=== PATIENT | female | born 1955 | race Caucasian/White ===

== ENCOUNTER 2019-06-12 00:21 | Inpatient (IN) ==
[2019-06-12] MEDS ORDERED: SODIUM CHLORIDE 0.9% 1,000 ML IV STA (00:50)
[2019-06-12 01:03] LABS: PT Patient Result 10.7 SECS
[2019-06-12 01:22] LABS: Albumin 3.1 G/DL (3.4-5.0); Bilirubin,Total 0.4 MG/DL (0.2-1.0); Calcium 8.7 MG/DL (8.5-10.1); Osmolality,Calculated 289.6 MOS/KG (273-304); Total Protein 7.2 G/DL (6.4-8.3)
[2019-06-12 01:47] LABS: Apearance,Urine CLOUDY (Clear); Bacteria,Urine Moderate /HPF (Few); Bilirubin,Urine Negative (Negative); Blood, Urine Small mg/dL (Negative); Glucose,Urine (UA) Negative (Negative); Ketones,Urine Negative (Negative); Nitrite,Urine Positive (Negative); Protein,Urine 100 MG/DL; RBC,Urine 55 /HPF (0-4); Urine Color Yellow (Yellow); Urine Specific Gravity 1.009 (1.001-1.035); Urine Urobilinogen < 2.0 EU/DL (0.2-1.0); WBC,Urine 2431 /HPF (0-6)
[2019-06-12] MEDS ORDERED: PIPERACILLIN/TAZOBACTAM 3,375 MG in SODIUM CHLORIDE 0.9% 100 ML IV STA ×2 (01:54→01:57)
[2019-06-12 02:44] LABS: Basophils % 0.2 % (0.0-0.8); Eosinophils # 0.3 10*3/uL (0.0-0.87); Eosinophils % 2.6 % (0.00-10.9); Hematocrit 38.2 VOL% (35.7-47.0); Immature Granulocytes % 0.7 %; Immature Granulocytes Absolute 0.09 #; Lymphocytes # 1.4 10*3/uL (1.4-4.0); Lymphocytes % 11.8 % (21.3-54.2); Mean Corpuscular HGB Conc 31.4 GM/DL (32-36); Mean Corpuscular Volume 93.9 FL (87-102); Mean Platelet Volume 9.4 FL (9.6-12.0); Monocytes % 7.9 % (1.7-12.7); Neutrophils % 76.8 % (38.7-73.9); Platelet Count 185 T/CUMM (130-400); Red Blood Count 4.07 MC/CUMM (3.8-5.5); Red Cell Distribution Width 13.4 % (9.3-17.3); White Blood Count 12.1 T/CUMM (4-12)
[2019-06-12] MEDS ORDERED: ACETAMINOPHEN 325 MG TABLET PO PRN (05:03)
[2019-06-12] MEDS ORDERED: DOCUSATE SODIUM 100 MG CAPSULE PO PRN (05:03)
[2019-06-12] MEDS ORDERED: ALBUTEROL/IPRATROPIUM 3 ML NEB RESP TX PRN (05:03)
[2019-06-12] MEDS ORDERED: ONDANSETRON 4 MG/2 ML VIAL IV PRN (05:03)
[2019-06-12] MEDS: AZTREONAM 2,000 MG in SYRINGE 1 EACH IV SCH ×4 (05:37→22:23)
[2019-06-12] MEDS: LEVOFLOXACIN INJ 750 MG in PREMIX 1 EACH IV SCH (05:40)
[2019-06-12] MEDS: ENOXAPARIN 40 MG/0.4 ML SYRINGE SUBCUT SCH (08:24)
[2019-06-12] MEDS: LACTATED RINGERS 1,000 ML IV SCH ×2 (12:51→21:02)
[2019-06-13] MEDS: LACTATED RINGERS 1,000 ML IV SCH ×3 (05:03→22:18)
[2019-06-13] MEDS: AZTREONAM 2,000 MG in SYRINGE 1 EACH IV SCH ×4 (05:03→23:29)
[2019-06-13] MEDS: LEVOFLOXACIN INJ 750 MG in PREMIX 1 EACH IV SCH (05:41)
[2019-06-13 05:42] LABS: Basophils % 0.3 % (0.0-0.8); Eosinophils # 0.3 10*3/uL (0.0-0.87); Eosinophils % 4.3 % (0.00-10.9); Hemoglobin 9.7 GM/DL (12.0-16.0); Immature Granulocytes % 0.5 %; Immature Granulocytes Absolute 0.04 #; Lymphocytes % 12.3 % (21.3-54.2); Mean Corpuscular HGB Conc 32.3 GM/DL (32-36); Mean Corpuscular Volume 92.6 FL (87-102); Mean Platelet Volume 9.8 FL (9.6-12.0); Monocytes % 8.5 % (1.7-12.7); Neutrophils % 74.1 % (38.7-73.9); Platelet Count 193 T/CUMM (130-400); Red Blood Count 3.24 MC/CUMM (3.8-5.5); Red Cell Distribution Width 13.8 % (9.3-17.3)
[2019-06-13 06:12] LABS: Osmolality,Calculated 287.7 MOS/KG (273-304)
[2019-06-13] MEDS: ENOXAPARIN 40 MG/0.4 ML SYRINGE SUBCUT SCH (08:57)
[2019-06-13] MEDS: DULoxetine 30 MG CAPSULE PO SCH (10:47)
[2019-06-13] MEDS: TAMOXIFEN 10 MG TABLET PO SCH (10:48)
[2019-06-13] MEDS: POLYETHYLENE GLYCOL POWDER 17 GM PACK PO SCH (11:15)
[2019-06-14] MEDS: AZTREONAM 2,000 MG in SYRINGE 1 EACH IV SCH (04:44)
[2019-06-14] MEDS: LEVOFLOXACIN INJ 750 MG in PREMIX 1 EACH IV SCH (04:49)
[2019-06-14 05:44] LABS: Basophils % 0.1 % (0.0-0.8); Calcium 7.9 MG/DL (8.5-10.1); Eosinophils # 0.4 10*3/uL (0.0-0.87); Eosinophils % 4.5 % (0.00-10.9); Hematocrit 28.8 VOL% (35.7-47.0); Hemoglobin 9.2 GM/DL (12.0-16.0); Immature Granulocytes % 0.5 %; Immature Granulocytes Absolute 0.04 #; Lymphocytes # 1.2 10*3/uL (1.4-4.0); Lymphocytes % 14.1 % (21.3-54.2); Mean Corpuscular HGB Conc 31.9 GM/DL (32-36); Mean Corpuscular Volume 92.9 FL (87-102); Mean Platelet Volume 10.1 FL (9.6-12.0); Monocytes % 6.9 % (1.7-12.7); Neutrophils % 73.9 % (38.7-73.9); Osmolality,Calculated 291.4 MOS/KG (273-304); Platelet Count 211 T/CUMM (130-400); Red Cell Distribution Width 13.9 % (9.3-17.3); White Blood Count 8.7 T/CUMM (4-12)
[2019-06-14 06:20] LABS: Troponin I 0.459 NG/ML (0.00-0.045)
[2019-06-14] MEDS ORDERED: POTASSIUM CHLORIDE 20 MEQ TABLET PO ONE (08:00)
[2019-06-14] MEDS ORDERED: FUROSEMIDE 20 MG/2 ML VIAL IV ONE ×2 (08:00→15:00)
[2019-06-14] MEDS: DULoxetine 30 MG CAPSULE PO SCH (08:28)
[2019-06-14] MEDS: ENOXAPARIN 40 MG/0.4 ML SYRINGE SUBCUT SCH (08:28)
[2019-06-14] MEDS: POLYETHYLENE GLYCOL POWDER 17 GM PACK PO SCH (08:29)
[2019-06-14] MEDS: TAMOXIFEN 10 MG TABLET PO SCH (08:29)
[2019-06-14] MEDS: MEROPENEM 500 MG in SODIUM CHLORIDE 0.9% 100 ML IV SCH ×3 (11:11→23:28)
[2019-06-15] MEDS: MEROPENEM 500 MG in SODIUM CHLORIDE 0.9% 100 ML IV SCH ×4 (05:17→20:48)
[2019-06-15] MEDS: ENOXAPARIN 40 MG/0.4 ML SYRINGE SUBCUT SCH (08:24)
[2019-06-15] MEDS: DULoxetine 30 MG CAPSULE PO SCH (08:25)
[2019-06-15] MEDS: POLYETHYLENE GLYCOL POWDER 17 GM PACK PO SCH (08:25)
[2019-06-15] MEDS: TAMOXIFEN 10 MG TABLET PO SCH (08:28)
[2019-06-15 08:37] LABS: Osmolality,Calculated 289.6 MOS/KG (273-304)
[2019-06-15] MEDS ORDERED: FUROSEMIDE 20 MG/2 ML VIAL IV ONE (10:00)
[2019-06-15] MEDS ORDERED: POTASSIUM CHLORIDE 20 MEQ TABLET PO ONE (10:00)
[2019-06-16] MEDS: MEROPENEM 500 MG in SODIUM CHLORIDE 0.9% 100 ML IV SCH ×3 (03:21→15:25)
[2019-06-16 06:22] LABS: Calcium 8.1 MG/DL (8.5-10.1); Osmolality,Calculated 291.6 MOS/KG (273-304)
[2019-06-16] MEDS: ENOXAPARIN 40 MG/0.4 ML SYRINGE SUBCUT SCH (09:21)
[2019-06-16] MEDS: POLYETHYLENE GLYCOL POWDER 17 GM PACK PO SCH (09:21)
[2019-06-16] MEDS: DULoxetine 30 MG CAPSULE PO SCH (09:21)
[2019-06-16] MEDS: TAMOXIFEN 10 MG TABLET PO SCH (09:22)
[2019-06-16 11:53] VITALS: BP 116/63
== END 2019-06-16 14:55 | DRG 463 ==
LOC: N.ED 00:21 → SUATTDRO 03:59 → N.EDINP 03:59 → N.2E 05:04
PROVIDERS: ADMIT Family Medicine; ATTEND Internal Medicine Cardiovascular Disease

== ENCOUNTER 2019-09-02 13:02 | Inpatient (IN) ==
[2019-09-02] MEDS ORDERED: methylPREDNISolone SOD SUC 125 MG/2 ML VIAL IV STA (13:06)
[2019-09-02] MEDS ORDERED: CLINDAMYCIN INJ 900 MG in PREMIX 1 EACH IV STA (13:07)
[2019-09-02] MEDS ORDERED: LEVOFLOXACIN INJ 500 MG in PREMIX 1 EACH IV STA (13:07)
[2019-09-02] MEDS ORDERED: NOREPINEPHRINE 4 MG/4 ML VIAL IV ONE (13:28)
[2019-09-02 13:43] LABS: Basophils # 0.1 10*3/uL (0.0-0.2); Basophils % 0.4 % (0.0-0.8); Eosinophils # 0.1 10*3/uL (0.0-0.87); Eosinophils % 0.8 % (0.00-10.9); Hematocrit 37.4 VOL% (35.7-47.0); Hemoglobin 11.8 GM/DL (12.0-16.0); Immature Granulocytes % 2.9 %; Immature Granulocytes Absolute 0.38 #; Lymphocytes # 2.4 10*3/uL (1.4-4.0); Lymphocytes % 18.4 % (21.3-54.2); Mean Corpuscular HGB Conc 31.6 GM/DL (32-36); Mean Corpuscular Volume 94.7 FL (87-102); Mean Platelet Volume 9.9 FL (9.6-12.0); Monocytes % 4.2 % (1.7-12.7); Neutrophils % 73.3 % (38.7-73.9); Platelet Count 216 T/CUMM (130-400); Red Blood Count 3.95 MC/CUMM (3.8-5.5); Red Cell Distribution Width 13.1 % (9.3-17.3)
[2019-09-02] MEDS ORDERED: NOREPINEPHRINE 8 MG in SODIUM CHLORIDE 0.9% 242 ML IV PRN (13:46)
[2019-09-02 13:56] LABS: PT Patient Result 10.9 SECS (9.6-12.2)
[2019-09-02 14:02] LABS: ABG Base Excess -4.9 MMOL/L (-2.5-2.5); ABG HCO3 20.5 MMOL/L (20-26); ABG PCO2 34.8 MM HG (35-48); ABG PH 7.363 (7.35-7.45); ABG TCO2 17.3 MMOL/L (23-27)
[2019-09-02 14:14] LABS: Alanine Aminotransferase 459 U/L (13-56); Alkaline Phosphatase 67 U/L (45-117); Aspartate Amino Transferase 401 U/L (0-37); Bilirubin,Total < 0.39 MG/DL (0.2-1.0); Blood Urea Nitrogen 14 MG/DL (7-18); Estimated Glom Filtration Rate 59 ML/MIN; Glucose 210 MG/DL (74-106); Total Protein 5.7 G/DL (6.4-8.3)
[2019-09-02] MEDS ORDERED: LEVOFLOXACIN INJ 750 MG in PREMIX 1 EACH IV SCH (14:30)
[2019-09-02 14:49] LABS: Apearance,Urine Slightly Hazy (Clear); Bacteria,Urine Occasional /HPF (Few); Bilirubin,Urine Negative (Negative); Blood, Urine Small mg/dL (Negative); Glucose,Urine (UA) 150 mg/dL (Negative); Ketones,Urine 5 mg/dL (Negative); Mucus,Urine Occasional /LPF (Occasional); Nitrite,Urine Negative (Negative); Protein,Urine 100 MG/DL; RBC,Urine 17 /HPF (0-4); Squamous Epithelial Cell,Urine Occasional /HPF (0-10); Urine Color Yellow (Yellow); Urine Specific Gravity 1.014 (1.001-1.035); Urine Urobilinogen < 2.0 EU/DL (0.2-1.0); WBC,Urine 20 /HPF (0-6)
[2019-09-02 15:08] LABS: Barbiturates Screen,Urine Negative (Negative); Benzodiazepines Screen,Urine Negative (Negative); Cannabinoid Screen,Urine Negative (Negative); Opiate Screen,Urine Negative (Negative); Phencyclidine Screen,Urine Negative (Negative)
[2019-09-02] MEDS ORDERED: levETIRAcetam 500 MG/5 ML VIAL IV ONE (15:30)
[2019-09-02] MEDS ORDERED: PROPOFOL 1,000 MG/100 ML BOTTLE IV ONE (16:35)
[2019-09-02] MEDS ORDERED: HEPARIN/NACL 0.9% 2 UNITS/ML 500 ML IV ONE (16:40)
[2019-09-02] MEDS ORDERED: ACETAMINOPHEN 325 MG TABLET PO PRN (17:02)
[2019-09-02] MEDS ORDERED: ONDANSETRON 4 MG/2 ML VIAL IV PRN (17:02)
[2019-09-02] MEDS ORDERED: ALBUTEROL 2.5 MG/3 ML NEB RESP TX PRN (17:07)
[2019-09-02] MEDS ORDERED: fentaNYL 100 MCG/2 ML VIAL IV PRN (17:23)
[2019-09-02] MEDS ORDERED: MEPERIDINE 25 MG/1 ML VIAL IV PRN (17:23)
[2019-09-02] MEDS ORDERED: CISATRACURIUM 10 MG/5 ML VIAL IV ONE (17:31)
[2019-09-02] MEDS: PROPOFOL 1,000 MG/100 ML BOTTLE IV SCH ×2 (17:56→21:10)
[2019-09-02] MEDS: NOREPINEPHRINE 8 MG in SODIUM CHLORIDE 0.9% 242 ML IV PRN (17:58)
[2019-09-02] MEDS ORDERED: SODIUM CHLORIDE 0.9% 1,000 ML IV ONE (18:00)
[2019-09-02 18:14] LABS: ABG Base Excess -5.5 MMOL/L (-2.5-2.5); ABG HCO3 19.9 MMOL/L (20-26); ABG PCO2 30.3 MM HG (35-48); ABG PH 7.392 (7.35-7.45); ABG TCO2 16.5 MMOL/L (23-27); Pt O2 Delivery Device Ventilator
[2019-09-02 18:16] LABS: Basophils % 0.1 % (0.0-0.8); Eosinophils % 0.1 % (0.00-10.9); Hematocrit 34.1 VOL% (35.7-47.0); Hemoglobin 11.1 GM/DL (12.0-16.0); Immature Granulocytes % 0.4 %; Immature Granulocytes Absolute 0.06 #; Lymphocytes # 0.5 10*3/uL (1.4-4.0); Lymphocytes % 3.3 % (21.3-54.2); Mean Corpuscular HGB Conc 32.6 GM/DL (32-36); Mean Corpuscular Volume 91.2 FL (87-102); Mean Platelet Volume 9.4 FL (9.6-12.0); Monocytes % 6.4 % (1.7-12.7); Neutrophils % 89.7 % (38.7-73.9); Platelet Count 193 T/CUMM (130-400); Red Blood Count 3.74 MC/CUMM (3.8-5.5); Red Cell Distribution Width 13.1 % (9.3-17.3); White Blood Count 14.1 T/CUMM (4-12)
[2019-09-02] MEDS: CISATRACURIUM 200 MG in SODIUM CHLORIDE 0.9% 180 ML IV SCH (18:20)
[2019-09-02] MEDS: fentaNYL INJ 1,250 MCG in SODIUM CHLORIDE 0.9% 225 ML IV PRN (18:23)
[2019-09-02 18:30] LABS: INR 1.1; PT Patient Result 12.1 SECS (9.6-12.2); Partial Thromboplastin Time 23.3 SECS (20.8-36.0)
[2019-09-02 18:38] LABS: Blood Urea Nitrogen 17 MG/DL (7-18); CKMB % 3.7 %; Calcium 7.4 MG/DL (8.5-10.1); Estimated Glom Filtration Rate 62 ML/MIN; Glucose 290 MG/DL (74-106); Osmolality,Calculated 304.4 MOS/KG (273-304); Troponin I 0.148 NG/ML (0.00-0.045)
[2019-09-02] MEDS: VANCOMYCIN INJ 1,250 MG in SODIUM CHLORIDE 0.9% 250 ML IV SCH (19:00)
[2019-09-02] MEDS: SODIUM CHLORIDE 0.9% 1,000 ML IV SCH ×2 (19:04→23:27)
[2019-09-02 19:32] LABS: Band Neutrophils 4 % (0-10); Lymphocytes 2 % (20-55); Segmented Neutrophils 87 % (50-85); Total Cells Counted 100
[2019-09-02 19:34] LABS: Macrocytosis Slight; Platelet Estimate Normal
[2019-09-02] MEDS: PANTOPRAZOLE 40 MG VIAL IV SCH (20:26)
[2019-09-02] MEDS: MINERAL OIL/PETROLATUM OPH OINT 3.5 GM TUBE BOTH EYES SCH ×2 (20:26→22:02)
[2019-09-02] MEDS ORDERED: MAGNESIUM SULF RIDER 4 GM in PREMIX 1 EACH IV PRN (20:48)
[2019-09-02] MEDS ORDERED: MAGNESIUM SULF RIDER 2 GM in PREMIX 1 EACH IV PRN (20:48)
[2019-09-02] MEDS ORDERED: POTASSIUM CHLORIDE RIDER 200 ML IV ONE (20:55)
[2019-09-02] MEDS: INSULIN REGULAR 100 UNIT/ML IV SCH (20:55)
[2019-09-02] MEDS ORDERED: FAMOTIDINE 20 MG/2 ML VIAL IV SCH (21:00)
[2019-09-02] MEDS ORDERED: ENOXAPARIN 40 MG/0.4 ML SYRINGE SUBCUT SCH (21:00)
[2019-09-02] MEDS ORDERED: DOCUSATE SODIUM 100 MG CAPSULE PO SCH (21:00)
[2019-09-02] MEDS: POTASSIUM CHLORIDE RIDER 10 MEQ in PREMIX 1 EACH IV PRN ×2 (21:00→21:55)
[2019-09-02] MEDS: CLINDAMYCIN INJ 600 MG in PREMIX 1 EACH IV SCH (21:52)
[2019-09-03] MEDS: INSULIN REGULAR 100 UNIT/ML IV SCH ×7 (00:08→22:05)
[2019-09-03 00:12] LABS: Basophils % 0.1 % (0.0-0.8); Eosinophils % 0.1 % (0.00-10.9); Hematocrit 30.6 VOL% (35.7-47.0); Hemoglobin 10.2 GM/DL (12.0-16.0); Immature Granulocytes % 0.4 %; Immature Granulocytes Absolute 0.04 #; Lymphocytes # 0.3 10*3/uL (1.4-4.0); Lymphocytes % 2.7 % (21.3-54.2); Mean Corpuscular HGB Conc 33.3 GM/DL (32-36); Mean Corpuscular Volume 90.3 FL (87-102); Mean Platelet Volume 9.7 FL (9.6-12.0); Monocytes % 6.3 % (1.7-12.7); Neutrophils % 90.4 % (38.7-73.9); Platelet Count 128 T/CUMM (130-400); Red Blood Count 3.39 MC/CUMM (3.8-5.5); Red Cell Distribution Width 12.9 % (9.3-17.3); White Blood Count 10.7 T/CUMM (4-12)
[2019-09-03 00:21] LABS: INR 1.1; PT Patient Result 12.2 SECS (9.6-12.2); Partial Thromboplastin Time 25.5 SECS (20.8-36.0)
[2019-09-03 00:30] LABS: Blood Urea Nitrogen 17 MG/DL (7-18); Estimated Glom Filtration Rate 62 ML/MIN; Glucose 144 MG/DL (74-106)
[2019-09-03 00:37] LABS: Troponin I 0.238 NG/ML (0.00-0.045)
[2019-09-03 00:43] LABS: Band Neutrophils 2 % (0-10); Lymphocytes 6 % (20-55); Microcytosis Slight; Segmented Neutrophils 88 % (50-85); Total Cells Counted 100
[2019-09-03 00:44] LABS: Platelet Estimate Normal
[2019-09-03] MEDS ORDERED: POTASSIUM CHLORIDE RIDER IV ONE (00:46)
[2019-09-03] MEDS: POTASSIUM CHLORIDE RIDER 10 MEQ in PREMIX 1 EACH IV PRN ×8 (00:51→13:55)
[2019-09-03] MEDS: SODIUM CHLORIDE 0.45% 1,000 ML IV SCH ×3 (01:15→16:47)
[2019-09-03] MEDS: PROPOFOL 1,000 MG/100 ML BOTTLE IV SCH ×5 (02:15→21:07)
[2019-09-03] MEDS: MINERAL OIL/PETROLATUM OPH OINT 3.5 GM TUBE BOTH EYES SCH ×6 (02:18→21:31)
[2019-09-03 04:16] LABS: ABG HCO3 14.9 MMOL/L (20-26); ABG Oxygen Saturation 98.9 % (95-100); ABG PH 7.487 (7.35-7.45); ABG TCO2 15.5 MMOL/L (23-27)
[2019-09-03 04:24] LABS: Basophils % 0.1 % (0.0-0.8); Hematocrit 28.5 VOL% (35.7-47.0); Hemoglobin 9.5 GM/DL (12.0-16.0); Immature Granulocytes % 0.6 %; Immature Granulocytes Absolute 0.06 #; Lymphocytes # 0.4 10*3/uL (1.4-4.0); Lymphocytes % 4.1 % (21.3-54.2); Mean Corpuscular HGB Conc 33.3 GM/DL (32-36); Mean Corpuscular Volume 89.9 FL (87-102); Mean Platelet Volume 10.4 FL (9.6-12.0); Monocytes % 4.5 % (1.7-12.7); Neutrophils % 90.7 % (38.7-73.9); Platelet Count 127 T/CUMM (130-400); Red Blood Count 3.17 MC/CUMM (3.8-5.5); Red Cell Distribution Width 12.6 % (9.3-17.3)
[2019-09-03 04:26] LABS: ABG PCO2 20.1 MM HG (35-48)
[2019-09-03 04:49] LABS: Albumin 2.4 G/DL (3.4-5.0); Bilirubin,Total 0.8 MG/DL (0.2-1.0); Calcium 6.8 MG/DL (8.5-10.1); Osmolality,Calculated 289.8 MOS/KG (273-304); Total Protein 4.8 G/DL (6.4-8.3)
[2019-09-03 04:51] LABS: Lymphocytes 2 % (20-55); Segmented Neutrophils 91 % (50-85); Total Cells Counted 100
[2019-09-03 04:52] LABS: Microcytosis Slight; Platelet Estimate Adequate
[2019-09-03 04:54] LABS: CKMB % 4.2 %
[2019-09-03 04:56] LABS: Troponin I 0.197 NG/ML (0.00-0.045)
[2019-09-03 05:30] LABS: Amorphous Crystals,Urine Occasional /HPF (Few); Apearance,Urine CLOUDY (Clear); Bacteria,Urine Occasional /HPF (Few); Bilirubin,Urine Negative (Negative); Blood, Urine Negative (Negative); Glucose,Urine (UA) Negative (Negative); Hyaline Casts,Urine 1 /LPF (0-3); Ketones,Urine 20 mg/dL (Negative); Mucus,Urine Occasional /LPF (Occasional); Nitrite,Urine Negative (Negative); Protein,Urine 30 MG/DL; RBC,Urine 12 /HPF (0-4); Squamous Epithelial Cell,Urine Occasional /HPF (0-10); Uric Acid Crystals,Urine Few /HPF (<1); Urine Color Yellow (Yellow); Urine Specific Gravity 1.024 (1.001-1.035); Urine Urobilinogen < 2.0 EU/DL (0.2-1.0); WBC,Urine 3 /HPF (0-6)
[2019-09-03] MEDS: CLINDAMYCIN INJ 600 MG in PREMIX 1 EACH IV SCH ×3 (05:55→21:19)
[2019-09-03 07:03] LABS: ABG Base Excess -4.7 MMOL/L (-2.5-2.5); ABG HCO3 20.6 MMOL/L (20-26); ABG Oxygen Saturation 99.9 % (95-100); ABG PCO2 26.1 MM HG (35-48); ABG PH 7.451 (7.35-7.45); ABG TCO2 16.5 MMOL/L (23-27)
[2019-09-03 07:42] LABS: INR 1.1; PT Patient Result 11.5 SECS (9.6-12.2); Partial Thromboplastin Time 26.5 SECS (20.8-36.0)
[2019-09-03] MEDS ORDERED: PANTOPRAZOLE 40 MG TABLET PO SCH (09:00)
[2019-09-03] MEDS: VANCOMYCIN INJ 1,250 MG in SODIUM CHLORIDE 0.9% 250 ML IV SCH (11:11)
[2019-09-03] MEDS ORDERED: NON-FORMULARY MEDICATION (Tamoxifen 20 MG) PO SCH (11:45)
[2019-09-03 11:57] LABS: Basophils % 0.1 % (0.0-0.8); Hematocrit 27.8 VOL% (35.7-47.0); Hemoglobin 9.4 GM/DL (12.0-16.0); Immature Granulocytes % 0.5 %; Immature Granulocytes Absolute 0.06 #; Lymphocytes # 0.7 10*3/uL (1.4-4.0); Lymphocytes % 5.7 % (21.3-54.2); Mean Corpuscular HGB Conc 33.8 GM/DL (32-36); Mean Corpuscular Volume 88.8 FL (87-102); Mean Platelet Volume 10.2 FL (9.6-12.0); Monocytes % 4.4 % (1.7-12.7); Neutrophils % 89.3 % (38.7-73.9); Platelet Count 120 T/CUMM (130-400); Red Blood Count 3.13 MC/CUMM (3.8-5.5); Red Cell Distribution Width 12.8 % (9.3-17.3)
[2019-09-03] MEDS ORDERED: DULoxetine 30 MG CAPSULE PO SCH (12:00)
[2019-09-03] MEDS ORDERED: POLYETHYLENE GLYCOL POWDER 17 GM PACK PO SCH (12:00)
[2019-09-03] MEDS ORDERED: DONEPEZIL 10 MG TABLET PO SCH (12:00)
[2019-09-03 12:06] LABS: PT Patient Result 11.2 SECS (9.6-12.2)
[2019-09-03 12:22] LABS: Osmolality,Calculated 287.8 MOS/KG (273-304)
[2019-09-03 12:29] LABS: CKMB % 4.7 %
[2019-09-03 12:30] LABS: Troponin I 0.138 NG/ML (0.00-0.045)
[2019-09-03] MEDS: fentaNYL INJ 1,250 MCG in SODIUM CHLORIDE 0.9% 225 ML IV PRN (12:35)
[2019-09-03] MEDS: LEVOFLOXACIN INJ 750 MG in PREMIX 1 EACH IV SCH (13:00)
[2019-09-03] MEDS: CISATRACURIUM 200 MG in SODIUM CHLORIDE 0.9% 180 ML IV SCH ×2 (13:38→16:48)
[2019-09-03] MEDS: PANTOPRAZOLE 40 MG VIAL IV SCH (17:40)
[2019-09-03 17:45] LABS: Basophils % 0.1 % (0.0-0.8); Hematocrit 27.5 VOL% (35.7-47.0); Hemoglobin 9.4 GM/DL (12.0-16.0); Immature Granulocytes % 0.4 %; Immature Granulocytes Absolute 0.05 #; Lymphocytes # 0.7 10*3/uL (1.4-4.0); Lymphocytes % 5.5 % (21.3-54.2); Mean Corpuscular HGB Conc 34.2 GM/DL (32-36); Mean Corpuscular Volume 88.1 FL (87-102); Mean Platelet Volume 10.3 FL (9.6-12.0); Monocytes % 4.1 % (1.7-12.7); Neutrophils % 89.9 % (38.7-73.9); Platelet Count 135 T/CUMM (130-400); Red Blood Count 3.12 MC/CUMM (3.8-5.5); Red Cell Distribution Width 12.9 % (9.3-17.3); White Blood Count 13.1 T/CUMM (4-12)
[2019-09-03 17:57] LABS: PT Patient Result 11.1 SECS (9.6-12.2); Partial Thromboplastin Time 28.8 SECS (20.8-36.0)
[2019-09-03 19:02] LABS: Calcium 6.8 MG/DL (8.5-10.1); Osmolality,Calculated 292.4 MOS/KG (273-304)
[2019-09-03] MEDS ORDERED: MEMANTINE 10 MG TABLET PO SCH (21:00)
[2019-09-03] MEDS ORDERED: CLOZAPINE 50 MG PO SCH (21:00)
[2019-09-04] MEDS: INSULIN REGULAR 100 UNIT/ML IV SCH ×4 (00:04→07:02)
[2019-09-04 00:09] LABS: Basophils % 0.2 % (0.0-0.8); Eosinophils % 0.1 % (0.00-10.9); Hematocrit 28.5 VOL% (35.7-47.0); Hemoglobin 9.7 GM/DL (12.0-16.0); Immature Granulocytes % 0.5 %; Immature Granulocytes Absolute 0.08 #; Lymphocytes # 0.9 10*3/uL (1.4-4.0); Lymphocytes % 4.9 % (21.3-54.2); Mean Corpuscular Volume 88.5 FL (87-102); Mean Platelet Volume 10.4 FL (9.6-12.0); Monocytes % 3.8 % (1.7-12.7); Neutrophils % 90.5 % (38.7-73.9); Platelet Count 148 T/CUMM (130-400); Red Blood Count 3.22 MC/CUMM (3.8-5.5); Red Cell Distribution Width 13.2 % (9.3-17.3); White Blood Count 17.3 T/CUMM (4-12)
[2019-09-04] MEDS: SODIUM CHLORIDE 0.45% 1,000 ML IV SCH ×3 (00:23→08:41)
[2019-09-04 00:33] LABS: Calcium 6.9 MG/DL (8.5-10.1); Osmolality,Calculated 291.4 MOS/KG (273-304)
[2019-09-04 01:02] LABS: Anisocytosis 1+; Lymphocytes 5 % (20-55); Platelet Estimate Adequate; Segmented Neutrophils 91 % (50-85); Total Cells Counted 100
[2019-09-04 01:03] LABS: PT Patient Result 11.2 SECS (9.6-12.2); Partial Thromboplastin Time 28.2 SECS (20.8-36.0)
[2019-09-04] MEDS: MINERAL OIL/PETROLATUM OPH OINT 3.5 GM TUBE BOTH EYES SCH ×6 (02:07→21:28)
[2019-09-04] MEDS: PROPOFOL 1,000 MG/100 ML BOTTLE IV SCH ×5 (02:15→21:08)
[2019-09-04] MEDS: CLINDAMYCIN INJ 600 MG in PREMIX 1 EACH IV SCH ×3 (05:08→21:27)
[2019-09-04] MEDS: VANCOMYCIN INJ 1,250 MG in SODIUM CHLORIDE 0.9% 250 ML IV SCH (05:43)
[2019-09-04] MEDS: fentaNYL INJ 1,250 MCG in SODIUM CHLORIDE 0.9% 225 ML IV PRN (06:15)
[2019-09-04 06:27] LABS: ABG Base Excess -7.2 MMOL/L (-2.5-2.5); ABG HCO3 18.6 MMOL/L (20-26); ABG Oxygen Saturation 99.6 % (95-100); ABG PCO2 26.1 MM HG (35-48); ABG PH 7.406 (7.35-7.45); ABG TCO2 15.1 MMOL/L (23-27)
[2019-09-04 06:29] LABS: Basophils % 0.1 % (0.0-0.8); Eosinophils % 0.1 % (0.00-10.9); Hematocrit 27.6 VOL% (35.7-47.0); Hemoglobin 9.1 GM/DL (12.0-16.0); Immature Granulocytes % 0.9 %; Immature Granulocytes Absolute 0.14 #; Lymphocytes # 0.7 10*3/uL (1.4-4.0); Lymphocytes % 4.5 % (21.3-54.2); Mean Corpuscular Volume 89.9 FL (87-102); Mean Platelet Volume 10.3 FL (9.6-12.0); Monocytes % 3.9 % (1.7-12.7); Neutrophils % 90.5 % (38.7-73.9); Platelet Count 149 T/CUMM (130-400); Red Blood Count 3.07 MC/CUMM (3.8-5.5); Red Cell Distribution Width 13.3 % (9.3-17.3); White Blood Count 15.4 T/CUMM (4-12)
[2019-09-04 06:36] LABS: PT Patient Result 11.3 SECS (9.6-12.2); Partial Thromboplastin Time 28.2 SECS (20.8-36.0)
[2019-09-04 07:01] LABS: Albumin 2.4 G/DL (3.4-5.0); Bilirubin,Total 0.5 MG/DL (0.2-1.0); Calcium 6.6 MG/DL (8.5-10.1); Total Protein 4.9 G/DL (6.4-8.3)
[2019-09-04] MEDS: INSULIN REGULAR 100 UNIT/ML SUBCUT SCH ×5 (07:41→23:47)
[2019-09-04 08:10] LABS: Band Neutrophils 15 % (0-10); Lymphocytes 2 % (20-55); Platelet Estimate Adequate; Segmented Neutrophils 81 % (50-85); Total Cells Counted 100
[2019-09-04 08:11] LABS: Anisocytosis Slight
[2019-09-04] MEDS ORDERED: ALBUMIN 25% 25 GM in PREMIX 1 EACH IV ONE (08:59)
[2019-09-04] MEDS ORDERED: LACTATED RINGERS 500 ML IV ONE (09:03)
[2019-09-04] MEDS: LACTATED RINGERS 1,000 ML IV SCH ×3 (09:33→22:56)
[2019-09-04] MEDS: NOREPINEPHRINE 8 MG in SODIUM CHLORIDE 0.9% 242 ML IV PRN (09:37)
[2019-09-04] MEDS: CALCIUM GLUCONATE 1,000 MG in SODIUM CHLORIDE 0.9% 100 ML IV SCH ×2 (09:55→21:07)
[2019-09-04] MEDS: CISATRACURIUM 200 MG in SODIUM CHLORIDE 0.9% 180 ML IV SCH ×2 (10:11→19:02)
[2019-09-04 11:45] LABS: ABG HCO3 20.2 MMOL/L (20-26); ABG PCO2 26.6 MM HG (35-48); ABG PH 7.443 (7.35-7.45); ABG TCO2 16.9 MMOL/L (23-27)
[2019-09-04 12:02] LABS: Calcium 6.9 MG/DL (8.5-10.1); Osmolality,Calculated 283.1 MOS/KG (273-304)
[2019-09-04] MEDS: LEVOFLOXACIN INJ 750 MG in PREMIX 1 EACH IV SCH (12:04)
[2019-09-04] MEDS ORDERED: DEXTROSE 10% 250 ML BAG IV PRN (16:40)
[2019-09-04] MEDS ORDERED: GLUCAGON 1 MG VIAL IM PRN (16:40)
[2019-09-04] MEDS: PANTOPRAZOLE 40 MG VIAL IV SCH (19:06)
[2019-09-05] MEDS: VANCOMYCIN INJ 1,250 MG in SODIUM CHLORIDE 0.9% 250 ML IV SCH (00:40)
[2019-09-05] MEDS: MINERAL OIL/PETROLATUM OPH OINT 3.5 GM TUBE BOTH EYES SCH ×2 (02:52→05:50)
[2019-09-05 04:29] LABS: Basophils % 0.1 % (0.0-0.8); Eosinophils % 0.4 % (0.00-10.9); Hematocrit 22.2 VOL% (35.7-47.0); Hemoglobin 7.3 GM/DL (12.0-16.0); Immature Granulocytes % 0.6 %; Immature Granulocytes Absolute 0.05 #; Lymphocytes # 0.9 10*3/uL (1.4-4.0); Lymphocytes % 11.4 % (21.3-54.2); Mean Corpuscular HGB Conc 32.9 GM/DL (32-36); Mean Corpuscular Volume 90.2 FL (87-102); Mean Platelet Volume 11.2 FL (9.6-12.0); Monocytes % 5.3 % (1.7-12.7); Neutrophils % 82.2 % (38.7-73.9); Platelet Count 99 T/CUMM (130-400); Red Blood Count 2.46 MC/CUMM (3.8-5.5); White Blood Count 7.8 T/CUMM (4-12)
[2019-09-05 04:30] LABS: ABG Base Excess -2.8 MMOL/L (-2.5-2.5); ABG HCO3 22.1 MMOL/L (20-26); ABG PH 7.435 (7.35-7.45); ABG TCO2 19.3 MMOL/L (23-27)
[2019-09-05] MEDS: LACTATED RINGERS 1,000 ML IV SCH (04:37)
[2019-09-05] MEDS: INSULIN REGULAR 100 UNIT/ML SUBCUT SCH ×2 (05:12→08:24)
[2019-09-05 05:15] LABS: Albumin 2.6 G/DL (3.4-5.0); Bilirubin,Total 1.1 MG/DL (0.2-1.0); Calcium 7.6 MG/DL (8.5-10.1); Osmolality,Calculated 286.7 MOS/KG (273-304); Total Protein 4.9 G/DL (6.4-8.3)
[2019-09-05] MEDS: LORazepam 2 MG/1 ML VIAL IV PRN ×2 (05:35→09:03)
[2019-09-05] MEDS: CLINDAMYCIN INJ 600 MG in PREMIX 1 EACH IV SCH (05:36)
[2019-09-05 05:47] LABS: Lymphocytes 14 % (20-55); Microcytosis 1+; Platelet Estimate Decreased; Segmented Neutrophils 85 % (50-85); Total Cells Counted 100
[2019-09-05 05:48] LABS: Anisocytosis Slight
[2019-09-05 06:55] VITALS: BP 107/58
[2019-09-05] MEDS ORDERED: VANCOMYCIN INJ 1,250 MG in SODIUM CHLORIDE 0.9% 250 ML IV SCH (08:00)
[2019-09-05] MEDS: CALCIUM GLUCONATE 1,000 MG in SODIUM CHLORIDE 0.9% 100 ML IV SCH (08:24)
[2019-09-05] MEDS: MORPHINE 4 MG/1 ML VIAL IV PRN ×2 (09:00→09:09)
== END 2019-09-05 09:14 | disposition expired | DRG 720 ==
LOC: N.ED 13:02 → N.EDINP 14:44 → SUATTDRO 14:44 → N.ICU 14:59
PROVIDERS: ADMIT Internal Medicine; ATTEND Family Medicine